=== PATIENT | female | born 1955 | race Two or more races ===

== ENCOUNTER 2017-11-01 16:14 | Inpatient (IN) | payer BC, OTHER ==
[~2017-11-01] VITALS: Ht 160 cm; Wt 67.1 kg
[2017-11-01 18:25] LABS: Basophils # (auto) 0 uL; Eosinophils # (auto) 0 uL; Hemoglobin 12.2 g/dL (12.2-16.2); Mean Corpuscular Hgb Conc. 33.7 g/dL (32.0-36.0); Monocytes # (auto) 0.5 uL
[2017-11-01 18:28] LABS: Basophils % (auto) 0.4 % (0.0-2.0); Eosinophils % (auto) 0.5 % (0.0-7.0); Lymphocytes # (auto) 0.9 uL; Lymphocytes % (auto) 15.7 % (10.0-50.0); Mean Corpuscular Hemoglobin 29.1 pg (28.0-32.0); Mean Corpuscular Volume 86.2 fL (80.0-100.0); Neutrophils # (auto) 4.4 uL; Neutrophils % (auto) 74.4 % (37.0-80.0); Nucleated Red Blood Cells % 0.1 %; Platelet Count (auto) 560 10^3/uL (140-450); Red Blood Cells 4.18 10^6/uL (4.0-5.20); Red Cell Distribution Width 12.3 % (11.8-14.3); White Blood Cell 5.9 10^3/uL (4.4-10.8)
[2017-11-01 18:40] LABS: INR 0.96 (0.9-1.15); Partial Thromboplastin Time 32.8 sec (23.78-33.04); Prothrombin Time 10.3 sec (9.27-12.13)
[2017-11-01 18:45] LABS: Albumin 2.6 g/dL (3.4-5.0); BUN/Creatinine Ratio 16.1; Bilirubin, Total 0.5 mg/dL (0.2-1.0); Potassium 4.3 mmol/L (3.5-5.1); Total Protein 6.8 g/dL (6.4-8.2)
[2017-11-02 00:07] LABS: Urine Bacteria NONE SEEN /hpf (None Seen); Urine Blood Negative /uL (Negative); Urine Hyaline Cast FEW /lpf (0 - 2); Urine Mucus FEW (None Seen); Urine WBC 2 /hpf (0 - 5)
[2017-11-02] MEDS ORDERED: IBUPROFEN 600 MG TAB PO PRN (03:15)
[2017-11-02] MEDS ORDERED: MORPHINE SULF INJ 2 MG/ML SYRINGE 1ML IV PRN (03:15)
[2017-11-02] MEDS ORDERED: ONDANSETRON HCL 4 MG/2 ML VIAL IV PRN (03:15)
[2017-11-02] MEDS ORDERED: traMADol HCL 50 MG TAB PO PRN (03:15)
[2017-11-02 07:41] LABS: Basophils # (auto) 0 uL; Basophils % (auto) 0.6 % (0.0-2.0); Eosinophils # (auto) 0 uL; Monocytes # (auto) 0.5 uL; Red Cell Distribution Width 12.3 % (11.8-14.3)
[2017-11-02 07:43] LABS: Eosinophils % (auto) 0.8 % (0.0-7.0); Hematocrit 35.7 % (36.0-46.0); Lymphocytes % (auto) 19.9 % (10.0-50.0); Mean Corpuscular Hemoglobin 28.9 pg (28.0-32.0); Mean Corpuscular Hgb Conc. 33.5 g/dL (32.0-36.0); Mean Corpuscular Volume 86.4 fL (80.0-100.0); Monocytes % (auto) 9.7 % (0.0-12.0); Neutrophils # (auto) 3.4 uL; Platelet Count (auto) 530 10^3/uL (140-450); Red Blood Cells 4.14 10^6/uL (4.0-5.20); White Blood Cell 4.9 10^3/uL (4.4-10.8)
[2017-11-02 07:55] LABS: BUN/Creatinine Ratio 23.8; Calcium 8.1 mg/dL (8.5-10.1); Potassium 4.1 mmol/L (3.5-5.1)
[2017-11-02] MEDS: PANTOPRAZOLE 40 MG TAB PO SCH ×2 (10:00→10:50)
[2017-11-02] MEDS: ENALAPRIL MALEATE 2.5 MG TAB PO SCH (10:50)
[2017-11-02 15:10] LABS: Partial Thromboplastin Time 32.8 sec (23.78-33.04); Prothrombin Time 10.7 sec (9.27-12.13)
[2017-11-02] MEDS ORDERED: METF-370 PO (20:05)
[2017-11-02] MEDS ORDERED: SIMV10TA84 PO (20:05)
[2017-11-02] MEDS ORDERED: ENAL2.5T PO (20:05)
[2017-11-02] MEDS ORDERED: ALPR0.25 PO (20:05)
[2017-11-02 21:27] VITALS: BP 94/62
[2017-11-03 04:43] VITALS: BP 99/68
[2017-11-03] MEDS ORDERED: ceFAZolin 1GM VL ONE (06:51)
[2017-11-03] MEDS ORDERED: HEPARIN SODIUM (PORCINE) 5000 UNITS/ML 1ML VIAL ONE (06:51)
[2017-11-03] MEDS ORDERED: LIDOCAINE 1% HCL (LOCAL ANESTH.) INJ 20ML MDV ONE (06:51)
[2017-11-03] MEDS ORDERED: HEPARIN 1,000 UNITS/ml 1ML VIAL ONE (06:52)
[2017-11-03] MEDS ORDERED: ceFAZolin 1GM/50ML 50 ML IV ONE (07:24)
[2017-11-03] MEDS ORDERED: MIDAZOLAM HCL 1MG/1ML-2 ML VIAL ONE (07:39)
[2017-11-03] MEDS ORDERED: fentaNYL CITRATE 100 MCG/2 ML VL ONE (07:39)
[2017-11-03] MEDS ORDERED: MEPERIDINE HCL (50 MG/ML) 1 ML VIAL ONE (07:40)
[2017-11-03] MEDS ORDERED: PROPOFOL 10 MG/ML 20 ML IV ONE (07:41)
[2017-11-03] MEDS ORDERED: DEXAMETHASONE SOD PHOS 10MG/1ML VIAL INJ ONE (07:41)
[2017-11-03] MEDS ORDERED: ONDANSETRON HCL 4 MG/2 ML VIAL IV ONE (08:30)
[2017-11-03] MEDS ORDERED: ACCU-CHEK COMFORT CURVE STRIP VI ONE (08:30)
[2017-11-03] MEDS ORDERED: ePHEDrine SULFATE 50 MG/ML AMP IV PRN (08:30)
[2017-11-03] MEDS ORDERED: KETOROLAC TROMETH 30 MG/ML 1ML VIAL IV ONE (08:30)
[2017-11-03] MEDS ORDERED: MIDAZOLAM HCL 1MG/1ML-2 ML VIAL IV PRN (08:30)
[2017-11-03] MEDS ORDERED: LABETALOL HCL 5 MG/ML 4ML SYRINGE IV PRN (08:30)
[2017-11-03] MEDS ORDERED: MORPHINE SULFATE 4 MG/ML SYR/VIAL IV PRN (08:30)
[2017-11-03] MEDS: PANTOPRAZOLE 40 MG TAB PO SCH (10:00)
[2017-11-03] MEDS: ENALAPRIL MALEATE 2.5 MG TAB PO SCH (10:00)
[2017-11-03] MEDS ORDERED: MORPHINE SULFATE 4 MG/ML SYR/VIAL IV ONE (10:00)
[2017-11-03 13:00] VITALS: BP 106/67
[2017-11-03 17:00] VITALS: BP 113/69
== END 2017-11-03 18:50 | disposition home or self-care (01) | DRG 754 ==
LOC: ER 16:14 → OVERFLOW 16:15 → WEST WING 11-02 17:03
PROVIDERS: ADMIT Nurse Practitioner Family; ATTEND Internal Medicine
PROC: 0W9G3ZZ Drainage of Peritoneal Cavity, Percutaneous Approach (ICD-10-PCS; 2017-11-02)
PROC: 02HV33Z Insertion of Infusion Device into Superior Vena Cava, Percutaneous Approach (ICD-10-PCS; 2017-11-03)
PROC: 0JH60WZ Insertion of Totally Implantable Vascular Access Device into Chest Subcutaneous Tissue and Fascia, Open Approach (ICD-10-PCS; principal; 2017-11-03 07:15)
DX: C56.2 Malignant neoplasm of left ovary (principal); E43 Unspecified severe protein-calorie malnutrition; C79.9 Secondary malignant neoplasm of unspecified site; E87.1 Hypo-osmolality and hyponatremia; R18.0 Malignant ascites; C55 Malignant neoplasm of uterus, part unspecified; E11.9 Type 2 diabetes mellitus without complications; E78.5 Hyperlipidemia, unspecified; I10 Essential (primary) hypertension; Z51.5 Encounter for palliative care; Z68.26 Body mass index [BMI] 26.0-26.9, adult
CPT/HCPCS: 10022; 36415; 49083; 71045; 74176; 76705; 76942; 80048; 80053; 81001; 82962; 83986; 85025; 85610; 85730; 87205; 89051; 93005; C1788; J0690; J1100; J2001; J2250; J2704

== ENCOUNTER 2017-11-04 10:28 | Emergency (ER) | payer BC ==
[~2017-11-04] VITALS: Ht 162.6 cm; Wt 65.8 kg
[~2017-11-04 10:28] MED LIST: ALPR0.25 PO; ENAL2.5T PO; METF-370 PO; SIMV10TA84 PO
[2017-11-04 17:39] LABS: Urine Bacteria NONE SEEN /hpf (None Seen); Urine Blood Negative /uL (Negative); Urine Hyaline Cast MANY /lpf (0 - 2); Urine Mucus FEW (None Seen); Urine Specific Gravity 1.026 (1.001-1.035); Urine WBC 5 /hpf (0 - 5)
[2017-11-04 18:21] LABS: Basophils # (auto) 0 uL; Eosinophils # (auto) 0 uL; Hemoglobin 13.3 g/dL (12.2-16.2); Lymphocytes # (auto) 0.7 uL; Lymphocytes % (auto) 6.8 % (10.0-50.0); Monocytes # (auto) 0.6 uL; Red Cell Distribution Width 12.6 % (11.8-14.3)
[2017-11-04 18:23] LABS: Basophils % (auto) 0.2 % (0.0-2.0); Hematocrit 39.8 % (36.0-46.0); Mean Corpuscular Hemoglobin 28.6 pg (28.0-32.0); Mean Corpuscular Hgb Conc. 33.4 g/dL (32.0-36.0); Mean Corpuscular Volume 85.8 fL (80.0-100.0); Monocytes % (auto) 6.1 % (0.0-12.0); Neutrophils # (auto) 8.9 uL; Neutrophils % (auto) 86.9 % (37.0-80.0); Platelet Count (auto) 519 10^3/uL (140-450); Red Blood Cells 4.64 10^6/uL (4.0-5.20); White Blood Cell 10.2 10^3/uL (4.4-10.8)
[2017-11-04 18:40] LABS: Albumin 2.3 g/dL (3.4-5.0); BUN/Creatinine Ratio 34.4; Calcium 7.9 mg/dL (8.5-10.1); Potassium 4.9 mmol/L (3.5-5.1)
[2017-11-04 18:43] LABS: Bilirubin, Total 0.3 mg/dL (0.2-1.0); Total Protein 6.5 g/dL (6.4-8.2)
[2017-11-04] MEDS ORDERED: SODIUM CHLORIDE 0.9% 500 ML IVB ONE (20:38)
[2017-11-04] MEDS ORDERED: ONDANSETRON HCL 4 MG/2 ML VIAL IV ONE (20:45)
[2017-11-04] MEDS ORDERED: HYDROmorphone HCL 2 MG/ML VL IV ONE (20:45)
[2017-11-04 21:23] LABS: Magnesium 2.1 mg/dL (1.6-2.6)
[2017-11-04 21:47] LABS: INR 0.95 (0.9-1.15); Partial Thromboplastin Time 29.3 sec (23.78-33.04); Prothrombin Time 10.2 sec (9.27-12.13)
[2017-11-05 01:24] VITALS: BP 106/73
== END 2017-11-05 02:06 | disposition home or self-care (01) ==
LOC: ER 10:28 → MERGE 10:28 → ER 11-05 02:06
DX: R11.10 Vomiting, unspecified (principal); C56.9 Malignant neoplasm of unspecified ovary; E86.0 Dehydration
CPT/HCPCS: 36415; 74176; 80053; 81001; 82150; 82962; 83690; 83735; 85025; 85610; 85730; 94761; 96361; 96374; 96375; 99285; J1170; J2405; J7040

== ENCOUNTER 2017-12-10 09:48 | Inpatient (IN) | payer BC ==
[2017-12-10] VITALS (18 sets, daily range): BP systolic 81–113; BP diastolic 46–73
[~2017-12-10] VITALS: Ht 162.6 cm; Wt 77.4 kg
[2017-12-10] MEDS ORDERED: SODIUM CHLORIDE 0.9% 1,000 ML IV ONE (10:00)
[2017-12-10] MEDS ORDERED: ONDANSETRON HCL 4 MG/2 ML VIAL IV ONE (10:15)
[2017-12-10 10:51] LABS: Basophils # (auto) 0 uL; Basophils % (auto) 0.1 % (0.0-2.0); Eosinophils # (auto) 0 uL; Hemoglobin 12.3 g/dL (12.2-16.2); Lymphocytes # (auto) 0.3 uL; Neutrophils # (auto) 3.8 uL; Nucleated Red Blood Cells % 0.1 %
[2017-12-10 10:53] LABS: Hematocrit 38.1 % (36.0-46.0); INR 1.48 (0.9-1.15); Lymphocytes % (auto) 8.2 % (10.0-50.0); Mean Corpuscular Hemoglobin 26.3 pg (28.0-32.0); Mean Corpuscular Hgb Conc. 32.2 g/dL (32.0-36.0); Mean Corpuscular Volume 81.7 fL (80.0-100.0); Monocytes # (auto) 0 uL; Monocytes % (auto) 0.2 % (0.0-12.0); Neutrophils % (auto) 91.5 % (37.0-80.0); Partial Thromboplastin Time 38.2 sec (23.78-33.04); Platelet Count (auto) 305 10^3/uL (140-450); Prothrombin Time 15.5 sec (9.27-12.13); Red Blood Cells 4.66 10^6/uL (4.0-5.20); Red Cell Distribution Width 15.1 % (11.8-14.3); White Blood Cell 4.1 10^3/uL (4.4-10.8)
[2017-12-10 11:04] LABS: Albumin 1.7 g/dL (3.4-5.0); BUN/Creatinine Ratio 14.8; Calcium 7.7 mg/dL (8.5-10.1); Total Protein 5.7 g/dL (6.4-8.2)
[2017-12-10] MEDS ORDERED: PIPERACILLIN-TAZOB 3.375GM 100 ML IV ONE (11:45)
[2017-12-10] MEDS ORDERED: SODIUM CHLORIDE 0.9% 1,000 ML IV SCH (12:14)
[2017-12-10] MEDS ORDERED: PROMETHAZINE HCL 25 MG/ML 1ML IV PRN (12:15)
[2017-12-10] MEDS ORDERED: TEMAZEPAM 15 MG CAP PO PRN (12:15)
[2017-12-10] MEDS ORDERED: NITROGLYCERIN 0.4 MG SL TAB SL PRN (12:15)
[2017-12-10] MEDS ORDERED: MORPHINE SULF INJ 2 MG/ML SYRINGE 1ML IV PRN ×2 (12:15)
[2017-12-10] MEDS ORDERED: LORazepam 0.5 MG TAB PO PRN (12:15)
[2017-12-10] MEDS ORDERED: DEXTROSE (50%) 50ML SYRG IV PRN (12:15)
[2017-12-10 13:05] LABS: Lactic Acid w/Reflex 6.9 mmol/L (0.4-2.0)
[2017-12-10] MEDS ORDERED: ONDANSETRON HCL 4 MG/2 ML VIAL ONE (13:09)
[2017-12-10] MEDS: PANTOPRAZOLE 40 MG TAB PO SCH (13:14)
[2017-12-10] MEDS: ONDANSETRON HCL 4 MG/2 ML VIAL IV PRN ×2 (13:24→20:00)
[2017-12-10 13:47] LABS: Amylase 9 U/L (25-115); Lipase 29 U/L (73-393)
[2017-12-10] MEDS: InsuLIN REG 1unit/0.01ml Soln (100units/ml) SC SCH ×2 (17:00→21:54)
[2017-12-10] MEDS: ACCU-CHEK COMFORT CURVE STRIP VI SCH ×2 (18:31→21:54)
[2017-12-10] MEDS ORDERED: METOPROLOL TARTRATE 25 MG TAB PO ONE (19:30)
[2017-12-10] MEDS: PIPERACILLIN-TAZOB 3.375GM 100 ML IV SCH (19:38)
[2017-12-10] MEDS: SODIUM CHLORIDE 0.9% 1,000 ML IV SCH (19:38)
[2017-12-10 19:47] LABS: Hematocrit 37.5 % (36.0-46.0); Hemoglobin 12.4 g/dL (12.2-16.2); Mean Corpuscular Hemoglobin 27.1 pg (28.0-32.0); Mean Corpuscular Volume 82.1 fL (80.0-100.0); Platelet Count (auto) 305 10^3/uL (140-450); Red Blood Cells 4.57 10^6/uL (4.0-5.20)
[2017-12-10 19:50] LABS: Basophils % (manual) 0 (0.0-2.0); Blast Cells 0; Eosinophils % (manual) 0 (0-7); Metamyelocytes % 0; Myelocytes % 0; Promyelocytes % 0; Reactive Lymphocytes 0
[2017-12-10 19:56] LABS: BUN/Creatinine Ratio 17.6; Calcium 7.4 mg/dL (8.5-10.1); Potassium 3.9 mmol/L (3.5-5.1)
[2017-12-10 20:03] LABS: Free T4 (Free Thyroxine) 0.91 ng/dL (0.89-1.76)
[2017-12-10 20:04] LABS: Free T3 1.73 pg/mL (2.3-4.2)
[2017-12-10] MEDS ORDERED: ALBUMIN 25% 0 ML IV ONE (20:06)
[2017-12-10] MEDS ORDERED: ALBUMIN 5% 250 ML IV ONE ×2 (20:06→20:30)
[2017-12-10] MEDS: ACETAMINOPHEN 500 MG TAB PO PRN (20:10)
[2017-12-10 20:14] LABS: Band Neutrophils % (manual) 10; Lymphocytes % (manual) 7 (10.0-50.0); Monocytes % (manual) 4 (0-12)
[2017-12-10] MEDS ORDERED: LIDOCAINE 1% (LOCAL ANESTH.) PF 5ml SDV ONE (20:19)
[2017-12-10] MEDS ORDERED: NOREPINEPHRINE 8 MG/250ML KIT 0 ML IV ONE (20:25)
[2017-12-10] MEDS ORDERED: LIDOCAINE 1% HCL (LOCAL ANESTH.) INJ 20ML MDV ID ONE (20:30)
[2017-12-10] MEDS: METOPROLOL TARTRATE 25 MG TAB PO SCH (22:00)
[2017-12-10] MEDS ORDERED: PROMETHAZINE HCL 25 MG/ML 1ML IV ONE (22:15)
[2017-12-10] MEDS ORDERED: PROMETHAZINE HCL 6.25 MG/5 ML ORAL SYRUP ONE (22:29)
[2017-12-10] MEDS ORDERED: ALBUMIN 25% 100 ML IV ONE ×2 (23:15→23:24)
[2017-12-10] MEDS: ALBUMIN 25% 100 ML IV SCH (23:30)
[2017-12-11] VITALS (49 sets, daily range): BP systolic 82–134; BP diastolic 45–70
[2017-12-11] MEDS ORDERED: PROMETHAZINE HCL 6.25 MG/5 ML ORAL SYRUP PO ONE
[2017-12-11] MEDS: PIPERACILLIN-TAZOB 3.375GM 100 ML IV SCH ×5 (00:04→23:33)
[2017-12-11] MEDS: ALBUMIN 25% 100 ML IV SCH ×2 (01:34→03:01)
[2017-12-11 02:48] LABS: Urine Amorphous Crystal MANY /hpf (None Seen); Urine Bacteria MOD /hpf (None Seen); Urine Blood 2+ /uL (Negative); Urine Mucus FEW (None Seen); Urine Specific Gravity 1.034 (1.001-1.035); Urine WBC 6 /hpf (0 - 5)
[2017-12-11] MEDS: ACCU-CHEK COMFORT CURVE STRIP VI SCH ×4 (05:44→21:26)
[2017-12-11 05:48] LABS: Basophils # (auto) 0 uL; Eosinophils # (auto) 0 uL; Hematocrit 26.5 % (36.0-46.0); Hemoglobin 8.8 g/dL (12.2-16.2); Lymphocytes # (auto) 0.3 uL; Lymphocytes % (auto) 3.7 % (10.0-50.0); Mean Corpuscular Hgb Conc. 33.4 g/dL (32.0-36.0); Monocytes # (auto) 0.1 uL; Monocytes % (auto) 2.2 % (0.0-12.0); Neutrophils # (auto) 6.4 uL; Neutrophils % (auto) 94.1 % (37.0-80.0); Nucleated Red Blood Cells % 0.1 %; Platelet Count (auto) 242 10^3/uL (140-450); Red Blood Cells 3.27 10^6/uL (4.0-5.20); White Blood Cell 6.8 10^3/uL (4.4-10.8)
[2017-12-11] MEDS: InsuLIN REG 1unit/0.01ml Soln (100units/ml) SC SCH ×4 (05:48→22:00)
[2017-12-11 05:54] LABS: BUN/Creatinine Ratio 22.2; Bilirubin, Total 2.5 mg/dL (0.2-1.0); Calcium 7.6 mg/dL (8.5-10.1); Potassium 3.3 mmol/L (3.5-5.1); Total Protein 5.7 g/dL (6.4-8.2)
[2017-12-11 06:48] LABS: INR 1.78 (0.9-1.15); Partial Thromboplastin Time 69.3 sec (23.78-33.04); Prothrombin Time 18.4 sec (9.27-12.13)
[2017-12-11] MEDS: PANTOPRAZOLE 40 MG TAB PO SCH ×3 (09:09→11:23)
[2017-12-11] MEDS: ONDANSETRON HCL 4 MG/2 ML VIAL IV PRN (09:10)
[2017-12-11] MEDS: METOPROLOL TARTRATE 25 MG TAB PO SCH (09:10)
[2017-12-11] MEDS ORDERED: SODIUM CHLORIDE 0.9% 1,000 ML IV ONE (12:15)
[2017-12-11] MEDS ORDERED: FUROSEMIDE 40 MG/4 ML VIAL IV ONE (12:15)
[2017-12-11] MEDS: MAGIC MOUTHWASH 55 ML SUSP MT SCH ×3 (13:16→21:26)
[2017-12-11] MEDS: SODIUM CHLORIDE 0.9% 1,000 ML IV SCH (13:18)
[2017-12-11 14:15] LABS: Urine WBC None Seen /hpf (0 - 5)
[2017-12-11 14:50] LABS: Protein, Urine 194.9 mg/dL (0.0-11.9)
[2017-12-11 15:01] LABS: Urine Amorphous Crystal FEW /hpf (None Seen); Urine Bacteria NONE SEEN /hpf (None Seen); Urine Blood 3+ /uL (Negative)
[2017-12-11 15:34] LABS: Urine Specific Gravity 1.033 (1.001-1.035)
[2017-12-11] MEDS ORDERED: MORPHINE SULFATE 4 MG/ML SYR/VIAL IV PRN (15:45)
[2017-12-11] MEDS ORDERED: PROMETHAZINE HCL 25 MG/ML 1ML IV PRN (18:15)
[2017-12-11] MEDS: LORazepam 0.5 MG TAB PO PRN (21:28)
[2017-12-12] VITALS (17 sets, daily range): BP systolic 97–158; BP diastolic 58–90
[2017-12-12] MEDS: PIPERACILLIN-TAZOB 3.375GM 100 ML IV SCH ×2 (05:30→12:45)
[2017-12-12 05:45] LABS: Albumin 2.2 g/dL (3.4-5.0); BUN/Creatinine Ratio 29.7; Bilirubin, Direct 2.3 mg/dL (0-0.2); Bilirubin, Total 2.8 mg/dL (0.2-1.0); Calcium 7.9 mg/dL (8.5-10.1); Phosphorus 2.7 mg/dL (2.5-4.90); Potassium 3.2 mmol/L (3.5-5.1); Total Protein 5.4 g/dL (6.4-8.2); Uric Acid 3.3 mg/dL (2.6-6.0)
[2017-12-12] MEDS: ACCU-CHEK COMFORT CURVE STRIP VI SCH ×4 (06:07→22:25)
[2017-12-12 06:53] LABS: Hematocrit 30.8 % (36.0-46.0); Hemoglobin 10.5 g/dL (12.2-16.2); Mean Corpuscular Hemoglobin 27.5 pg (28.0-32.0); Platelet Count (auto) 322 10^3/uL (140-450); Red Cell Distribution Width 14.9 % (11.8-14.3); White Blood Cell 11.2 10^3/uL (4.4-10.8)
[2017-12-12] MEDS: MAGIC MOUTHWASH 55 ML SUSP MT SCH ×5 (06:53→22:25)
[2017-12-12] MEDS: InsuLIN REG 1unit/0.01ml Soln (100units/ml) SC SCH ×4 (06:54→22:00)
[2017-12-12 07:32] LABS: Basophils % (manual) 0 (0.0-2.0); Blast Cells 0; Eosinophils % (manual) 0 (0-7); Lymphocytes % (manual) 0 (10.0-50.0); Metamyelocytes % 0; Myelocytes % 0; Promyelocytes % 0; Reactive Lymphocytes 0
[2017-12-12] MEDS: HYDROcodone-ACET 5/325MG TAB PO PRN (08:22)
[2017-12-12 08:40] LABS: Band Neutrophils % (manual) 5; Monocytes % (manual) 3 (0-12)
[2017-12-12] MEDS: SODIUM CHLORIDE 0.9% 1,000 ML IV SCH (10:00)
[2017-12-12] MEDS: PANTOPRAZOLE 40 MG TAB PO SCH (10:29)
[2017-12-12] MEDS ORDERED: cefTRIAXone 1GM/10ml IVPUSH 10 ML IV SCH (14:30)
[2017-12-12] MEDS ORDERED: PHYTONADIONE ORAL Susp 10 mg/10ml PO SCH (15:00)
[2017-12-12] MEDS: CIPROFLOXACIN 400MG/200ML 200 ML IV SCH ×2 (15:33→22:24)
[2017-12-12] MEDS: PHYTONADIONE ORAL Susp 10 mg/10ml PO SCH (15:55)
[2017-12-12] MEDS: SPIRONOLACTONE 25 MG TAB PO SCH (18:15)
[2017-12-13] VITALS (57 sets, daily range): BP systolic 94–132; BP diastolic 36–95
[2017-12-13 05:15] LABS: White Blood Cell 10.7 10^3/uL (4.4-10.8)
[2017-12-13 05:17] LABS: Hematocrit 33.2 % (36.0-46.0); Mean Corpuscular Hemoglobin 26.9 pg (28.0-32.0); Mean Corpuscular Hgb Conc. 33.3 g/dL (32.0-36.0); Platelet Count (auto) 353 10^3/uL (140-450); Red Cell Distribution Width 15.2 % (11.8-14.3)
[2017-12-13 05:30] LABS: Basophils % (manual) 0 (0.0-2.0); Blast Cells 0; Eosinophils % (manual) 0 (0-7); Myelocytes % 0; Promyelocytes % 0; Reactive Lymphocytes 0
[2017-12-13 05:31] LABS: INR 1.07 (0.9-1.15); Partial Thromboplastin Time 40.4 sec (23.78-33.04); Prothrombin Time 11.4 sec (9.27-12.13)
[2017-12-13 05:33] LABS: Potassium 3.7 mmol/L (3.5-5.1)
[2017-12-13 05:38] LABS: BUN/Creatinine Ratio 35.6; Calcium 7.7 mg/dL (8.5-10.1); Magnesium 1.9 mg/dL (1.6-2.6)
[2017-12-13] MEDS: SODIUM CHLORIDE 0.9% 1,000 ML IV SCH ×2 (06:00→10:25)
[2017-12-13 06:03] LABS: Band Neutrophils % (manual) 18; Lymphocytes % (manual) 3 (10.0-50.0); Metamyelocytes % 1; Monocytes % (manual) 4 (0-12)
[2017-12-13] MEDS: MAGIC MOUTHWASH 55 ML SUSP MT SCH ×4 (06:40→22:26)
[2017-12-13] MEDS: SPIRONOLACTONE 25 MG TAB PO SCH ×2 (06:41→18:22)
[2017-12-13] MEDS: ACCU-CHEK COMFORT CURVE STRIP VI SCH ×4 (06:42→23:02)
[2017-12-13] MEDS: InsuLIN REG 1unit/0.01ml Soln (100units/ml) SC SCH ×4 (06:48→23:02)
[2017-12-13] MEDS: PANTOPRAZOLE 40 MG TAB PO SCH (09:37)
[2017-12-13] MEDS: LORazepam 0.5 MG TAB PO PRN (09:38)
[2017-12-13] MEDS: PHYTONADIONE ORAL Susp 10 mg/10ml PO SCH (09:49)
[2017-12-13] MEDS ORDERED: MORPHINE SULFATE 4 MG/ML SYR/VIAL IV ONE (10:00)
[2017-12-13] MEDS: CIPROFLOXACIN 400MG/200ML 200 ML IV SCH ×2 (10:38→22:25)
[2017-12-13] MEDS ORDERED: DILTIAZEM HCL 25 MG/5 ML VIAL IV ONE ×2 (12:00→17:30)
[2017-12-13] MEDS ORDERED: AMIODARONE HCL 150 MG in D5W 5% 100 ML IV ONE (12:00)
[2017-12-13] MEDS ORDERED: AMIODARONE HCL 900 MG in DEXTROSE 500 ML IV SCH ×2 (12:03→18:03)
[2017-12-13] MEDS: HYDROcodone-ACET 5/325MG TAB PO PRN (14:40)
[2017-12-13] MEDS ORDERED: HYDROcodone-ACET 5/325MG TAB PO PRN (15:00)
[2017-12-13] MEDS ORDERED: POLYETHYLENE GLYCOL 17 GM PWDR PO PRN (15:00)
[2017-12-13] MEDS: METOPROLOL TARTRATE 25 MG TAB PO SCH ×2 (15:54→22:26)
[2017-12-13] MEDS ORDERED: DIGOXIN (250MCG/ML) 2 ML AMPULE IV ONE ×2 (17:30→18:00)
[2017-12-13] MEDS ORDERED: DILTIAZEM 125mg/125ml BAG KIT 125 ML IV SCH (17:30)
[2017-12-13] MEDS ORDERED: PHENYLEPHRINE INJ 20 MG in D5W 5% 250 ML IV SCH (17:30)
[2017-12-13] MEDS: PHENYLEPHRINE INJ 20 MG in SODIUM CHL 0.9% 250 ML IV SCH (17:45)
[2017-12-13] MEDS: DOCUSATE SOD 100 MG CAP PO SCH (22:26)
[2017-12-13] MEDS: METOCLOPRAMIDE HCL 5MG/ml INJ 2ml VIAL IV PRN (23:24)
[2017-12-14] VITALS (74 sets, daily range): BP systolic 98–149; BP diastolic 39–82
[2017-12-14] MEDS: PHENYLEPHRINE INJ 20 MG in SODIUM CHL 0.9% 250 ML IV SCH ×3 (02:05→18:06)
[2017-12-14 04:22] LABS: Hematocrit 35.5 % (36.0-46.0); Hemoglobin 12.2 g/dL (12.2-16.2); Mean Corpuscular Hemoglobin 27.9 pg (28.0-32.0); Mean Corpuscular Hgb Conc. 34.3 g/dL (32.0-36.0); Mean Corpuscular Volume 81.4 fL (80.0-100.0); Platelet Count (auto) 352 10^3/uL (140-450); Red Blood Cells 4.36 10^6/uL (4.0-5.20); Red Cell Distribution Width 15.3 % (11.8-14.3); White Blood Cell 8.4 10^3/uL (4.4-10.8)
[2017-12-14 04:27] LABS: INR 1.02 (0.9-1.15); Partial Thromboplastin Time 36.1 sec (23.78-33.04); Prothrombin Time 10.9 sec (9.27-12.13)
[2017-12-14 04:31] LABS: Basophils % (manual) 0 (0.0-2.0); Blast Cells 0; Eosinophils % (manual) 0 (0-7); Myelocytes % 0; Promyelocytes % 0; Reactive Lymphocytes 0
[2017-12-14 04:32] LABS: BUN/Creatinine Ratio 39.1; Calcium 7.8 mg/dL (8.5-10.1); Magnesium 2.1 mg/dL (1.6-2.6); Potassium 4.2 mmol/L (3.5-5.1)
[2017-12-14 05:03] LABS: Band Neutrophils % (manual) 13; Lymphocytes % (manual) 3 (10.0-50.0); Metamyelocytes % 1; Monocytes % (manual) 3 (0-12)
[2017-12-14] MEDS: DOCUSATE SOD 100 MG CAP PO SCH ×3 (06:00→21:31)
[2017-12-14] MEDS: SPIRONOLACTONE 25 MG TAB PO SCH ×2 (06:00→18:06)
[2017-12-14] MEDS: InsuLIN REG 1unit/0.01ml Soln (100units/ml) SC SCH ×4 (06:01→21:36)
[2017-12-14] MEDS: LACTULOSE 20Gm/30ML SOLN PO PRN (06:01)
[2017-12-14] MEDS: MAGIC MOUTHWASH 55 ML SUSP MT SCH ×4 (06:01→21:32)
[2017-12-14] MEDS: ACCU-CHEK COMFORT CURVE STRIP VI SCH ×4 (06:01→21:36)
[2017-12-14] MEDS ORDERED: DIGOXIN (250MCG/ML) 2 ML AMPULE IV SCH (10:00)
[2017-12-14] MEDS: PANTOPRAZOLE 40 MG TAB PO SCH (10:17)
[2017-12-14] MEDS: CIPROFLOXACIN 400MG/200ML 200 ML IV SCH ×2 (10:17→21:30)
[2017-12-14] MEDS: METOPROLOL TARTRATE 25 MG TAB PO SCH ×2 (10:17→21:31)
[2017-12-14] MEDS: DIGOXIN 0.25 MG TAB PO SCH (10:18)
[2017-12-14] MEDS: PHYTONADIONE ORAL Susp 10 mg/10ml PO SCH (10:18)
[2017-12-14] MEDS: DILTIAZEM HCL 180MG ER CAP PO SCH (11:13)
[2017-12-14] MEDS: AMIODARONE HCL 200 MG TAB PO SCH ×2 (11:13→21:31)
[2017-12-14] MEDS: MORPHINE SULFATE 4 MG/ML SYR/VIAL IV PRN (11:41)
[2017-12-14] MEDS: ALBUMIN 25% 100 ML IV SCH ×2 (14:16→15:11)
[2017-12-14] MEDS: LINEZOLID 600MG TABLET PO SCH ×2 (15:17→21:36)
[2017-12-14] MEDS: SODIUM CHLORIDE 0.9% 1,000 ML IV SCH (22:00)
[2017-12-15] MEDS: PHENYLEPHRINE INJ 20 MG in SODIUM CHL 0.9% 250 ML IV SCH ×2 (03:05→11:25)
[2017-12-15 05:50] VITALS: BP 120/76
[2017-12-15] MEDS: DOCUSATE SOD 100 MG CAP PO SCH ×3 (06:00→22:06)
[2017-12-15] MEDS: MAGIC MOUTHWASH 55 ML SUSP MT SCH ×4 (06:38→22:06)
[2017-12-15] MEDS: InsuLIN REG 1unit/0.01ml Soln (100units/ml) SC SCH ×4 (06:39→22:14)
[2017-12-15] MEDS: SPIRONOLACTONE 25 MG TAB PO SCH ×2 (06:39→17:30)
[2017-12-15 06:50] LABS: Hematocrit 31.5 % (36.0-46.0); Hemoglobin 10.6 g/dL (12.2-16.2); Mean Corpuscular Hemoglobin 27.5 pg (28.0-32.0); Mean Corpuscular Hgb Conc. 33.8 g/dL (32.0-36.0); Mean Corpuscular Volume 81.4 fL (80.0-100.0); Platelet Count (auto) 318 10^3/uL (140-450); Red Blood Cells 3.87 10^6/uL (4.0-5.20); Red Cell Distribution Width 15.4 % (11.8-14.3)
[2017-12-15] MEDS: ACCU-CHEK COMFORT CURVE STRIP VI SCH ×4 (07:09→22:06)
[2017-12-15 07:16] LABS: Albumin 2.4 g/dL (3.4-5.0); Bilirubin, Direct 0.5 mg/dL (0-0.2); Bilirubin, Total 0.9 mg/dL (0.2-1.0); Magnesium 2.4 mg/dL (1.6-2.6); Potassium 4.1 mmol/L (3.5-5.1); Total Protein 5.5 g/dL (6.4-8.2)
[2017-12-15 07:46] LABS: Basophils % (manual) 0 (0.0-2.0); Blast Cells 0; Eosinophils % (manual) 0 (0-7); Myelocytes % 0; Promyelocytes % 0; Reactive Lymphocytes 0
[2017-12-15 07:48] LABS: Band Neutrophils % (manual) 18; Lymphocytes % (manual) 1 (10.0-50.0); Metamyelocytes % 1; Monocytes % (manual) 6 (0-12)
[2017-12-15 09:00] VITALS: BP 122/71
[2017-12-15] MEDS: CIPROFLOXACIN 400MG/200ML 200 ML IV SCH ×2 (11:18→22:06)
[2017-12-15] MEDS: LINEZOLID 600MG TABLET PO SCH ×2 (11:22→22:05)
[2017-12-15] MEDS: DILTIAZEM HCL 180MG ER CAP PO SCH (11:24)
[2017-12-15] MEDS: DIGOXIN 0.25 MG TAB PO SCH (11:25)
[2017-12-15] MEDS: AMIODARONE HCL 200 MG TAB PO SCH ×2 (11:29→22:06)
[2017-12-15] MEDS: PANTOPRAZOLE 40 MG TAB PO SCH (11:29)
[2017-12-15] MEDS: METOPROLOL TARTRATE 25 MG TAB PO SCH ×2 (11:29→22:04)
[2017-12-15] MEDS: LACTULOSE 20Gm/30ML SOLN PO PRN (11:38)
[2017-12-15 13:00] VITALS: BP 115/72
[2017-12-15] MEDS: ACETAMINOPHEN 500 MG TAB PO PRN (16:57)
[2017-12-15 17:00] VITALS: BP 107/68
[2017-12-15] MEDS: Ensure Enlive Chocolate 8oz Bottle PO SCH (17:30)
[2017-12-15] MEDS: Pro-Stat SF 30ml Vanilla PO SCH (17:30)
[2017-12-15] MEDS: SODIUM CHLORIDE 0.9% 1,000 ML IV SCH (17:31)
[2017-12-15 22:09] VITALS: BP 124/66
[2017-12-16] MEDS: MORPHINE SULFATE 4 MG/ML SYR/VIAL IV PRN ×2 (03:36→18:31)
[2017-12-16 05:49] VITALS: BP 117/80
[2017-12-16] MEDS: SPIRONOLACTONE 25 MG TAB PO SCH ×2 (06:00→18:35)
[2017-12-16] MEDS: DOCUSATE SOD 100 MG CAP PO SCH ×3 (06:00→21:44)
[2017-12-16] MEDS: MAGIC MOUTHWASH 55 ML SUSP MT SCH ×4 (06:41→21:52)
[2017-12-16] MEDS: ACCU-CHEK COMFORT CURVE STRIP VI SCH ×4 (06:42→21:48)
[2017-12-16] MEDS: InsuLIN REG 1unit/0.01ml Soln (100units/ml) SC SCH ×4 (06:49→22:00)
[2017-12-16] MEDS: Pro-Stat SF 30ml Vanilla PO SCH ×2 (08:00→18:35)
[2017-12-16] MEDS: Ensure Enlive Chocolate 8oz Bottle PO SCH ×2 (08:00→18:35)
[2017-12-16 08:49] VITALS: BP 117/72
[2017-12-16] MEDS: AMIODARONE HCL 200 MG TAB PO SCH ×2 (11:10→21:44)
[2017-12-16] MEDS: PANTOPRAZOLE 40 MG TAB PO SCH (11:10)
[2017-12-16] MEDS: CIPROFLOXACIN 400MG/200ML 200 ML IV SCH ×2 (11:10→21:43)
[2017-12-16] MEDS: LINEZOLID 600MG TABLET PO SCH ×2 (11:11→21:44)
[2017-12-16] MEDS: METOPROLOL TARTRATE 25 MG TAB PO SCH ×2 (11:12→21:46)
[2017-12-16] MEDS: DIGOXIN 0.25 MG TAB PO SCH (11:12)
[2017-12-16] MEDS: DILTIAZEM HCL 180MG ER CAP PO SCH (11:14)
[2017-12-16 12:56] VITALS: BP 122/75
[2017-12-16 14:06] LABS: BUN/Creatinine Ratio 28.4; Calcium 7.7 mg/dL (8.5-10.1); Potassium 4.8 mmol/L (3.5-5.1)
[2017-12-16] MEDS: LACTULOSE 20Gm/30ML SOLN PO PRN (14:20)
[2017-12-16] MEDS: SODIUM CHLORIDE 0.9% 1,000 ML IV SCH (14:22)
[2017-12-16 16:46] VITALS: BP 109/66
[2017-12-16] MEDS: BISACODYL 10 MG RECT SUPP PR PRN (21:40)
[2017-12-16 22:00] VITALS: BP 117/74
[2017-12-17] MEDS: MORPHINE SULFATE 4 MG/ML SYR/VIAL IV PRN (01:10)
[2017-12-17] MEDS: SODIUM CHLORIDE 0.9% 1,000 ML IV SCH (05:28)
[2017-12-17 05:31] VITALS: BP 105/66
[2017-12-17 06:12] LABS: Hematocrit 35.1 % (36.0-46.0); Hemoglobin 11.2 g/dL (12.2-16.2); Mean Corpuscular Hemoglobin 26.5 pg (28.0-32.0); Mean Corpuscular Volume 82.6 fL (80.0-100.0); Red Blood Cells 4.25 10^6/uL (4.0-5.20); Red Cell Distribution Width 15.6 % (11.8-14.3); White Blood Cell 19.3 10^3/uL (4.4-10.8)
[2017-12-17 06:18] LABS: Platelet Count (auto) 269 10^3/uL (140-450)
[2017-12-17 06:19] LABS: Basophils % (manual) 0 (0.0-2.0); Blast Cells 0; Eosinophils % (manual) 0 (0-7); Metamyelocytes % 0; Myelocytes % 0; Promyelocytes % 0; Reactive Lymphocytes 0
[2017-12-17 06:27] LABS: BUN/Creatinine Ratio 28.8; Calcium 8.3 mg/dL (8.5-10.1); Magnesium 3.1 mg/dL (1.6-2.6); Phosphorus 4.3 mg/dL (2.5-4.90); Potassium 5.2 mmol/L (3.5-5.1)
[2017-12-17] MEDS: ACCU-CHEK COMFORT CURVE STRIP VI SCH ×4 (06:38→21:57)
[2017-12-17] MEDS: InsuLIN REG 1unit/0.01ml Soln (100units/ml) SC SCH ×4 (06:38→22:09)
[2017-12-17] MEDS: SPIRONOLACTONE 25 MG TAB PO SCH (06:39)
[2017-12-17] MEDS: DOCUSATE SOD 100 MG CAP PO SCH ×3 (06:39→21:56)
[2017-12-17] MEDS: MAGIC MOUTHWASH 55 ML SUSP MT SCH ×4 (06:43→21:57)
[2017-12-17 06:55] LABS: Band Neutrophils % (manual) 2; Lymphocytes % (manual) 1 (10.0-50.0); Monocytes % (manual) 1 (0-12)
[2017-12-17] MEDS: Ensure Enlive Chocolate 8oz Bottle PO SCH ×2 (08:00→18:25)
[2017-12-17] MEDS: Pro-Stat SF 30ml Vanilla PO SCH ×2 (08:00→18:26)
[2017-12-17 08:29] VITALS: BP 117/73
[2017-12-17] MEDS: METOCLOPRAMIDE HCL 5MG/ml INJ 2ml VIAL IV PRN (09:35)
[2017-12-17] MEDS: CIPROFLOXACIN 400MG/200ML 200 ML IV SCH ×2 (11:29→21:57)
[2017-12-17] MEDS: LACTULOSE 20Gm/30ML SOLN PO PRN (11:29)
[2017-12-17] MEDS: LINEZOLID 600MG TABLET PO SCH ×2 (11:29→21:56)
[2017-12-17] MEDS: AMIODARONE HCL 200 MG TAB PO SCH ×2 (11:29→21:56)
[2017-12-17] MEDS: PANTOPRAZOLE 40 MG TAB PO SCH (11:29)
[2017-12-17] MEDS: DIGOXIN 0.25 MG TAB PO SCH (11:30)
[2017-12-17] MEDS: DILTIAZEM HCL 180MG ER CAP PO SCH (11:31)
[2017-12-17] MEDS: METOPROLOL TARTRATE 25 MG TAB PO SCH ×2 (11:31→22:00)
[2017-12-17 12:44] VITALS: BP 111/68
[2017-12-17 17:16] VITALS: BP 106/67
[2017-12-17] MEDS: BISACODYL 10 MG RECT SUPP PR PRN (21:56)
[2017-12-17 22:00] VITALS: BP 99/59
[2017-12-18] MEDS: MAGIC MOUTHWASH 55 ML SUSP MT SCH ×4 (06:00→21:49)
[2017-12-18 06:21] VITALS: BP 98/54
[2017-12-18] MEDS: InsuLIN REG 1unit/0.01ml Soln (100units/ml) SC SCH ×4 (06:24→22:00)
[2017-12-18] MEDS: ACCU-CHEK COMFORT CURVE STRIP VI SCH ×4 (06:24→21:51)
[2017-12-18] MEDS: DOCUSATE SOD 100 MG CAP PO SCH ×3 (06:24→21:49)
[2017-12-18 08:00] VITALS: BP 107/61
[2017-12-18] MEDS: CIPROFLOXACIN 400MG/200ML 200 ML IV SCH ×2 (10:53→21:49)
[2017-12-18] MEDS: Pro-Stat SF 30ml Vanilla PO SCH ×2 (10:53→17:32)
[2017-12-18] MEDS: Ensure Enlive Chocolate 8oz Bottle PO SCH ×2 (10:53→17:31)
[2017-12-18] MEDS: DILTIAZEM HCL 180MG ER CAP PO SCH (10:54)
[2017-12-18] MEDS: AMIODARONE HCL 200 MG TAB PO SCH ×2 (10:54→21:50)
[2017-12-18] MEDS: DIGOXIN 0.25 MG TAB PO SCH (10:54)
[2017-12-18] MEDS: PANTOPRAZOLE 40 MG TAB PO SCH (10:55)
[2017-12-18] MEDS: METOPROLOL TARTRATE 25 MG TAB PO SCH ×2 (10:55→21:50)
[2017-12-18] MEDS: LINEZOLID 600MG TABLET PO SCH ×2 (10:55→21:51)
[2017-12-18] MEDS: ALBUMIN 25% 50 ML IV SCH ×2 (11:15→20:45)
[2017-12-18 13:00] VITALS: BP 124/67
[2017-12-18 16:42] VITALS: BP 121/72
[2017-12-18] MEDS: MORPHINE SULFATE 4 MG/ML SYR/VIAL IV PRN (17:43)
[2017-12-18] MEDS: METOCLOPRAMIDE HCL 5MG/ml INJ 2ml VIAL IV PRN (17:43)
[2017-12-18 22:26] VITALS: BP 114/60
[2017-12-19 06:07] VITALS: BP 104/67
[2017-12-19] MEDS: ACCU-CHEK COMFORT CURVE STRIP VI SCH ×4 (06:15→22:01)
[2017-12-19] MEDS: MAGIC MOUTHWASH 55 ML SUSP MT SCH ×4 (06:15→22:43)
[2017-12-19] MEDS: DOCUSATE SOD 100 MG CAP PO SCH ×3 (06:15→22:00)
[2017-12-19] MEDS: InsuLIN REG 1unit/0.01ml Soln (100units/ml) SC SCH ×4 (06:22→22:00)
[2017-12-19] MEDS ORDERED: ALBUMIN 25% 50 ML IV SCH (07:00)
[2017-12-19 07:54] LABS: BUN/Creatinine Ratio 21.5; Calcium 7.9 mg/dL (8.5-10.1)
[2017-12-19 09:00] VITALS: BP 112/63
[2017-12-19] MEDS ORDERED: InsuLIN REG 1unit/0.01ml Soln (100units/ml) IV ONE (09:30)
[2017-12-19] MEDS ORDERED: CALCIUM GLUC 4.65meq/50ml D5AE 50 ML IV ONE (09:30)
[2017-12-19] MEDS ORDERED: DEXTROSE (50%) 50ML SYRG IV ONE (09:30)
[2017-12-19] MEDS: CIPROFLOXACIN 400MG/200ML 200 ML IV SCH ×2 (10:00→22:00)
[2017-12-19] MEDS: Pro-Stat SF 30ml Vanilla PO SCH ×2 (10:06→18:00)
[2017-12-19] MEDS: Ensure Enlive Chocolate 8oz Bottle PO SCH ×2 (10:06→18:00)
[2017-12-19] MEDS ORDERED: BUMETANIDE (0.25 MG/ML) INJ 10ML IV ONE (10:15)
[2017-12-19] MEDS ORDERED: SODIUM POLYSTYRENE SULF 15GM/60ML SUSP PO ONE (10:30)
[2017-12-19] MEDS ORDERED: SODIUM CHL 3% 150 ML IV ONE (10:45)
[2017-12-19] MEDS: MORPHINE SULFATE 4 MG/ML SYR/VIAL IV PRN ×3 (11:00→22:45)
[2017-12-19] MEDS: METOCLOPRAMIDE HCL 5MG/ml INJ 2ml VIAL IV PRN ×2 (11:00→17:00)
[2017-12-19 11:07] LABS: BUN/Creatinine Ratio 20.5; Calcium 7.9 mg/dL (8.5-10.1); Potassium 5.5 mmol/L (3.5-5.1)
[2017-12-19] MEDS: ENOXAPARIN SOD 30 MG/0.3 ML SYRINGE SC SCH (11:30)
[2017-12-19 13:00] VITALS: BP 113/63
[2017-12-19] MEDS: AMIODARONE HCL 200 MG TAB PO SCH ×2 (13:23→22:00)
[2017-12-19] MEDS: DILTIAZEM HCL 180MG ER CAP PO SCH (13:23)
[2017-12-19] MEDS: DIGOXIN 0.25 MG TAB PO SCH (13:23)
[2017-12-19] MEDS: METOPROLOL TARTRATE 25 MG TAB PO SCH ×2 (13:24→22:01)
[2017-12-19] MEDS: LINEZOLID 600MG TABLET PO SCH ×2 (13:24→22:01)
[2017-12-19] MEDS: PANTOPRAZOLE 40 MG TAB PO SCH (13:24)
[2017-12-19 14:06] LABS: BUN/Creatinine Ratio 21.9; Calcium 8.1 mg/dL (8.5-10.1)
[2017-12-19 14:33] LABS: Potassium 5.8 mmol/L (3.5-5.1)
[2017-12-19] MEDS ORDERED: DIGOXIN IMMUNEFAB PER PHARMACY 0 ML IV ONE (16:00)
[2017-12-19 17:00] VITALS: BP 114/67
[2017-12-19] MEDS ORDERED: SODIUM CHL 0.9% IV ONE (17:30)
[2017-12-19] MEDS ORDERED: DIGOXIN IMMUNE FAB IV ONE (17:30)
[2017-12-19] MEDS: BUMETANIDE (0.25MG/ML) 4 ML VIAL IV SCH (18:00)
[2017-12-19 18:12] LABS: BUN/Creatinine Ratio 20.1; Calcium 7.9 mg/dL (8.5-10.1)
[2017-12-19 18:15] LABS: Potassium 5.6 mmol/L (3.5-5.1)
[2017-12-19] MEDS ORDERED: BUMETANIDE (0.25MG/ML) 4 ML VIAL IV ONE (18:30)
[2017-12-19 22:00] VITALS: BP 112/72
[2017-12-19 22:41] LABS: Calcium 8.1 mg/dL (8.5-10.1); Potassium 5.4 mmol/L (3.5-5.1)
[2017-12-19 22:44] LABS: BUN/Creatinine Ratio 20.1
[2017-12-20 05:14] VITALS: BP 104/69
[2017-12-20 05:39] LABS: Basophils # (auto) 0 uL; Basophils % (auto) 0.2 % (0.0-2.0); Eosinophils # (auto) 0 uL; Hematocrit 34.2 % (36.0-46.0); Hemoglobin 11.4 g/dL (12.2-16.2); Lymphocytes # (auto) 0.1 uL; Lymphocytes % (auto) 0.4 % (10.0-50.0); Mean Corpuscular Hgb Conc. 33.2 g/dL (32.0-36.0); Mean Corpuscular Volume 81.4 fL (80.0-100.0); Monocytes # (auto) 0.2 uL; Monocytes % (auto) 1.1 % (0.0-12.0); Neutrophils # (auto) 20.2 uL; Neutrophils % (auto) 98.3 % (37.0-80.0); Nucleated Red Blood Cells % 0.1 %; Platelet Count (auto) 165 10^3/uL (140-450); Red Cell Distribution Width 16.1 % (11.8-14.3); White Blood Cell 20.6 10^3/uL (4.4-10.8)
[2017-12-20 06:01] LABS: BUN/Creatinine Ratio 20.9; Calcium 8.2 mg/dL (8.5-10.1); Potassium 5.5 mmol/L (3.5-5.1)
[2017-12-20] MEDS: MAGIC MOUTHWASH 55 ML SUSP MT SCH ×4 (06:21→22:02)
[2017-12-20] MEDS: ACCU-CHEK COMFORT CURVE STRIP VI SCH ×4 (06:21→22:03)
[2017-12-20] MEDS: DOCUSATE SOD 100 MG CAP PO SCH ×3 (06:21→22:00)
[2017-12-20] MEDS: BUMETANIDE (0.25MG/ML) 4 ML VIAL IV SCH ×2 (06:21→18:38)
[2017-12-20] MEDS: InsuLIN REG 1unit/0.01ml Soln (100units/ml) SC SCH ×4 (06:25→22:00)
[2017-12-20] MEDS: Ensure Enlive Chocolate 8oz Bottle PO SCH ×2 (08:07→18:00)
[2017-12-20] MEDS: Pro-Stat SF 30ml Vanilla PO SCH ×2 (08:07→18:00)
[2017-12-20 09:11] VITALS: BP 113/76
[2017-12-20] MEDS: CIPROFLOXACIN 400MG/200ML 200 ML IV SCH ×2 (10:52→22:02)
[2017-12-20] MEDS: PANTOPRAZOLE 40 MG TAB PO SCH (10:53)
[2017-12-20] MEDS: DILTIAZEM HCL 180MG ER CAP PO SCH (10:53)
[2017-12-20] MEDS: LINEZOLID 600MG TABLET PO SCH ×2 (10:53→22:03)
[2017-12-20] MEDS: METOPROLOL TARTRATE 25 MG TAB PO SCH ×2 (10:54→22:22)
[2017-12-20] MEDS: ENOXAPARIN SOD 30 MG/0.3 ML SYRINGE SC SCH (10:54)
[2017-12-20] MEDS: AMIODARONE HCL 200 MG TAB PO SCH ×2 (10:55→22:03)
[2017-12-20 11:06] LABS: BUN/Creatinine Ratio 20.7; Calcium 8.3 mg/dL (8.5-10.1)
[2017-12-20 11:15] LABS: Potassium 5.6 mmol/L (3.5-5.1)
[2017-12-20 13:00] VITALS: BP 112/71
[2017-12-20 14:12] LABS: BUN/Creatinine Ratio 21.2
[2017-12-20 14:36] LABS: Potassium 5.6 mmol/L (3.5-5.1)
[2017-12-20 16:25] VITALS: BP 105/62
[2017-12-20 18:26] LABS: BUN/Creatinine Ratio 21.3; Calcium 7.9 mg/dL (8.5-10.1)
[2017-12-20] MEDS ORDERED: SODIUM POLYSTYRENE SULF 15GM/60ML SUSP PO ONE (19:30)
[2017-12-20] MEDS ORDERED: InsuLIN REG 1unit/0.01ml Soln (100units/ml) IV ONE (19:30)
[2017-12-20] MEDS ORDERED: CALCIUM GLUC 4.65meq/50ml D5AE 50 ML IV ONE (19:30)
[2017-12-20] MEDS ORDERED: DEXTROSE (50%) 50ML SYRG IV ONE (19:30)
[2017-12-20] MEDS: SODIUM CHLORIDE 0.9% 1,000 ML IV SCH (20:19)
[2017-12-20 21:46] VITALS: BP 120/75
[2017-12-20 22:21] LABS: BUN/Creatinine Ratio 19.6; Calcium 8.4 mg/dL (8.5-10.1)
[2017-12-20 22:31] LABS: Potassium 5.7 mmol/L (3.5-5.1)
[2017-12-21 04:52] VITALS: BP 127/81
[2017-12-21] MEDS: DOCUSATE SOD 100 MG CAP PO SCH ×2 (06:00→14:00)
[2017-12-21] MEDS: MAGIC MOUTHWASH 55 ML SUSP MT SCH ×2 (06:04→12:00)
[2017-12-21] MEDS: BUMETANIDE (0.25MG/ML) 4 ML VIAL IV SCH (06:04)
[2017-12-21] MEDS: InsuLIN REG 1unit/0.01ml Soln (100units/ml) SC SCH ×2 (06:30→11:30)
[2017-12-21] MEDS: ACCU-CHEK COMFORT CURVE STRIP VI SCH ×2 (06:31→11:30)
[2017-12-21] MEDS: Pro-Stat SF 30ml Vanilla PO SCH (08:00)
[2017-12-21] MEDS: SODIUM CHLORIDE 0.9% 1,000 ML IV SCH (08:00)
[2017-12-21] MEDS: Ensure Enlive Chocolate 8oz Bottle PO SCH ×2 (08:00→18:00)
[2017-12-21] MEDS: LINEZOLID 600MG TABLET PO SCH (10:00)
[2017-12-21] MEDS: CIPROFLOXACIN 400MG/200ML 200 ML IV SCH (10:00)
[2017-12-21] MEDS: AMIODARONE HCL 200 MG TAB PO SCH (10:00)
[2017-12-21] MEDS: METOPROLOL TARTRATE 25 MG TAB PO SCH (10:00)
[2017-12-21] MEDS: ENOXAPARIN SOD 30 MG/0.3 ML SYRINGE SC SCH (10:00)
[2017-12-21] MEDS: DILTIAZEM HCL 180MG ER CAP PO SCH (10:00)
[2017-12-21] MEDS: PANTOPRAZOLE 40 MG TAB PO SCH (10:00)
[2017-12-21 10:06] VITALS: BP 119/75
[2017-12-21 13:00] VITALS: BP 114/74
[2017-12-21 16:25] VITALS: BP 105/67
[2017-12-21] MEDS ORDERED: LORazepam 2MG/ML-1ML VIAL IV PRN (16:30)
[2017-12-21] MEDS ORDERED: MORPHINE SULFATE 4 MG/ML SYR/VIAL IV PRN (16:45)
[2017-12-21] MEDS ORDERED: BUMETANIDE (0.25MG/ML) 4 ML VIAL IV SCH (18:00)
[2017-12-21 21:55] VITALS: BP 114/72
[2017-12-22 05:00] VITALS: BP 121/81
[2017-12-22] MEDS: Ensure Enlive Chocolate 8oz Bottle PO SCH ×2 (08:00→18:00)
[2017-12-22 08:48] VITALS: BP 120/74
[2017-12-22 12:30] VITALS: BP 122/69
[2017-12-22 16:25] VITALS: BP 94/54
[2017-12-22 18:39] VITALS: BP 104/54
[2017-12-22 19:05] VITALS: BP 104/54
== END 2017-12-22 19:05 | disposition hospice, home (50) | DRG 374 ==
LOC: ER 09:48 → EDBD 09:48 → TELE 09:49 → TELE-WESTW 14:21 → DOU IN ICU 20:00 → ICU WEST 12-13 20:05 → TELE-CENTR 12-14 22:09
PROVIDERS: ADMIT Internal Medicine; ATTEND Internal Medicine
PROC: 0W9G3ZZ Drainage of Peritoneal Cavity, Percutaneous Approach (ICD-10-PCS; 2017-12-10)
PROC: 0W9G3ZZ Drainage of Peritoneal Cavity, Percutaneous Approach (ICD-10-PCS; principal; 2017-12-14)
PROC: BW40ZZZ Ultrasonography of Abdomen (ICD-10-PCS; 2017-12-14)
PROC: 0W9G3ZZ Drainage of Peritoneal Cavity, Percutaneous Approach (ICD-10-PCS; 2017-12-16)
PROC: BW40ZZZ Ultrasonography of Abdomen (ICD-10-PCS; 2017-12-16)
PROC: 0W9G3ZZ Drainage of Peritoneal Cavity, Percutaneous Approach (ICD-10-PCS; 2017-12-17)
PROC: BW40ZZZ Ultrasonography of Abdomen (ICD-10-PCS; 2017-12-17)
PROC: 0W9G3ZZ Drainage of Peritoneal Cavity, Percutaneous Approach (ICD-10-PCS; 2017-12-21)
PROC: BW40ZZZ Ultrasonography of Abdomen (ICD-10-PCS; 2017-12-21)
DX: C78.6 Secondary malignant neoplasm of retroperitoneum and peritoneum (principal); K65.2 Spontaneous bacterial peritonitis; N17.0 Acute kidney failure with tubular necrosis; E43 Unspecified severe protein-calorie malnutrition; K76.7 Hepatorenal syndrome; N39.0 Urinary tract infection, site not specified; R18.0 Malignant ascites; I31.3 Pericardial effusion (noninflammatory); E87.1 Hypo-osmolality and hyponatremia; C16.9 Malignant neoplasm of stomach, unspecified; C49.5 Malignant neoplasm of connective and soft tissue of pelvis; E87.4 Mixed disorder of acid-base balance; I47.1 Supraventricular tachycardia; J91.0 Malignant pleural effusion; J98.11 Atelectasis; E86.0 Dehydration; D64.9 Anemia, unspecified; E78.5 Hyperlipidemia, unspecified; E87.6 Hypokalemia; K52.9 Noninfective gastroenteritis and colitis, unspecified; E78.00 Pure hypercholesterolemia, unspecified; B96.1 Klebsiella pneumoniae [K. pneumoniae] as the cause of diseases classified elsewhere; E87.5 Hyperkalemia; B95.2 Enterococcus as the cause of diseases classified elsewhere; E11.65 Type 2 diabetes mellitus with hyperglycemia; I11.0 Hypertensive heart disease with heart failure; I48.0 Paroxysmal atrial fibrillation; I50.9 Heart failure, unspecified; K59.09 Other constipation; T45.1X5A Adverse effect of antineoplastic and immunosuppressive drugs, initial encounter; T46.0X5A Adverse effect of cardiac-stimulant glycosides and drugs of similar action, initial encounter; Z51.5 Encounter for palliative care; Z66 Do not resuscitate; Z68.29 Body mass index [BMI] 29.0-29.9, adult; Z85.43 Personal history of malignant neoplasm of ovary; Z85.028 Personal history of other malignant neoplasm of stomach; Z85.42 Personal history of malignant neoplasm of other parts of uterus; Z90.710 Acquired absence of both cervix and uterus; Z92.21 Personal history of antineoplastic chemotherapy; Z79.899 Other long term (current) drug therapy
CPT/HCPCS: 10022; 36415; 36600; 49083; 71045; 74176; 76604; 76700; 76705; 76775; 76942; 80048; 80053; 80076; 80162; 81001; 82150; 82306; 82570; 82805; 82962; 83036; 83605; 83690; 83735; 83880; 84100; 84156; 84300; 84439; 84443; 84481; 84484; 84550; 85007; 85025; 85027; 85379; 85610; 85730; 86304; 86850; 86900; 86901; 87040; 87077; 87081; 87086; 87186; 87205; 89051; 93005; 93306; 93971; 96374; 96375; 97116; A6257; C1729; J0610; J1815; J2001; J2405; J2543; J7060; P9047

== ENCOUNTER 2017-12-23 20:29 | Observation (INO) | payer BC ==
[~2017-12-23] VITALS: Ht 162.6 cm; Wt 63.5 kg
[~2017-12-23 20:29] MED LIST changes: -ENAL2.5T PO; -METF-370 PO; -SIMV10TA84 PO
[2017-12-23 21:34] LABS: INR 0.94 (0.9-1.15); Partial Thromboplastin Time 28.2 sec (23.78-33.04); Prothrombin Time 10.1 sec (9.27-12.13)
[2017-12-23 21:39] LABS: Alanine Aminotransferase 16 U/L (13-56); Albumin 2.4 g/dL (3.4-5.0); Alkaline Phosphatase 145 U/L (45-117); Anion Gap 11 (5-15); Aspartate Aminotransferase 9 U/L (15-37); BUN/Creatinine Ratio 36.1; Bilirubin, Total 0.7 mg/dL (0.2-1.0); Calcium 8.1 mg/dL (8.5-10.1); Carbon Dioxide 21 mmol/L (21-32); Chloride 96 mmol/L (98-107); GFR African American 23 mL/min; GFR Non-African American 19 mL/min; Glucose 120 mg/dL (74-106); Lactic Acid w/Reflex 2.7 mmol/L (0.4-2.0); Lipase 115 U/L (73-393); Potassium 5.5 mmol/L (3.5-5.1); Sodium 128 mmol/L (136-145); Total Protein 6.1 g/dL (6.4-8.2)
[2017-12-23 21:52] LABS: Blood Urea Nitrogen 99 mg/dL (7-18)
[2017-12-23] MEDS ORDERED: MORPHINE SULFATE 4 MG/ML SYR/VIAL IV ONE (23:30)
[2017-12-23] MEDS ORDERED: ONDANSETRON HCL 4 MG/2 ML VIAL IV ONE (23:30)
[2017-12-24 00:19] LABS: Hemoglobin 10.5 g/dL (12.2-16.2); Mean Corpuscular Hgb Conc. 32.4 g/dL (32.0-36.0)
[2017-12-24 00:21] LABS: Hematocrit 32.5 % (36.0-46.0); Mean Corpuscular Volume 80.2 fL (80.0-100.0); Platelet Count (auto) 76 10^3/uL (140-450); Red Blood Cells 4.05 10^6/uL (4.0-5.20); Red Cell Distribution Width 16.1 % (11.8-14.3)
[2017-12-24 00:56] LABS: Basophils % (manual) 0 (0.0-2.0); Blast Cells 0; Eosinophils % (manual) 0 (0-7); Myelocytes % 0; Promyelocytes % 0; Reactive Lymphocytes 0
[2017-12-24 00:59] LABS: Band Neutrophils % (manual) 12; Lymphocytes % (manual) 2 (10.0-50.0); Metamyelocytes % 2; Monocytes % (manual) 2 (0-12)
[2017-12-24] MEDS ORDERED: MORPHINE SULFATE 4 MG/ML SYR/VIAL IV ONE (08:15)
[2017-12-24] MEDS ORDERED: ONDANSETRON HCL 4 MG/2 ML VIAL IV ONE (08:15)
[2017-12-24 14:52] VITALS: BP 114/69
[2017-12-24] MEDS ORDERED: HYDROcodone-ACET 5/325MG TAB PO ONE (15:15)
== END 2017-12-24 15:39 | disposition home or self-care (01) | DRG 391 ==
LOC: EDBD 20:29 → EDUNIT# 20:29 → ER 20:44 → OVERFLOW 20:45 → ER 12-24 15:39
PROVIDERS: ADMIT Emergency Medicine; ATTEND Emergency Medicine
DX: R10.84 Generalized abdominal pain (principal); E43 Unspecified severe protein-calorie malnutrition; R18.8 Other ascites; E86.0 Dehydration; E11.9 Type 2 diabetes mellitus without complications; Z85.43 Personal history of malignant neoplasm of ovary
CPT/HCPCS: 36415; 74176; 80053; 83605; 83690; 84484; 85007; 85027; 85610; 85730; 96374; 96375; 96376; 99285; G0378; J2270; J2405; J7030